=== PATIENT | female | born 1995 | race Caucasian/White ===

== ENCOUNTER 2016-08-30 21:05 | Emergency (ER) | payer OTHER, BC ==
[~2016-08-30] VITALS: Ht 157.5 cm; Wt 56.7 kg
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
[2016-08-30] MEDS ORDERED: IBUPROFEN 600 MG TABLET. PO ONE (22:00)
[2016-08-30] MEDS ORDERED: CYCLOBENZAPRINE 10 MG TABLET. PO ONE (22:00)
[2016-08-30 22:52] VITALS: BP 129/79
[2016-08-30] MEDS ORDERED: IBUP-1007 PO (23:02)
[2016-08-30] MEDS ORDERED: CYCL10TA2 PO (23:02)
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
--- NOTE | 2016-08-31 08:14 | RAD ---
Indication injury, pain. Particularly the thumb. AP oblique and lateral views of the right hand were obtained. Note is made of anterolisthesis on the images indicating the area of concern. No acute or significant bony finding is seen.
== END 2016-08-30 23:05 | disposition home or self-care (01) ==
LOC: ER 21:05
DX: S46.812A Strain of other muscles, fascia and tendons at shoulder and upper arm level, left arm, initial encounter (principal); S63.641A Sprain of metacarpophalangeal joint of right thumb, initial encounter; V89.2XXA Person injured in unspecified motor-vehicle accident, traffic, initial encounter; Y93.I9 Activity, other involving external motion; Y92.410 Unspecified street and highway as the place of occurrence of the external cause; Y99.8 Other external cause status
CPT/HCPCS: 70450; 72125; 73130; 81025; 99284-25